=== PATIENT | male | born 1995 | race Caucasian/White ===

== ENCOUNTER 2016-09-08 11:25 | Emergency (ER) | payer MEDICAID ==
[~2016-09-08] VITALS: Ht 175.3 cm; Wt 113.6 kg
[~2016-09-08 11:25] MED LIST: ABILIFY PO; CLON0.1T14 PO; LIT150 PO; LITH300T PO; MET15 PO
[2016-09-08 11:38] VITALS: BP 151/87; PULSE 64; RESP 12; O2SAT 98
--- NOTE | 2016-09-08 11:59 | ED.REPORT ---
HPI-Chest Pain Under 40 Date of Service Sep 08, 2016 ED Provider: Florecita Johnson MD Patient is a 20 year old male with a history of depression and a mood disorder who presents to the ED via EMS due to sudden onset chest pain at 0800 this morning. Associated symptoms include dizziness and left arm pain. He denies any other symptoms at this time. The patient reports that while he was moving a clothes bin he started having a sharp pain that he describes as his "heart being slowly ripped in half". He then fell down due to the pain and landed on his left forearm, which he attributes his current pain to. Once arrived at the ED, the patient reports his chest pain has resolved. Nursing Notes Stated Complaint: CHEST PAIN Chief Complaint: Chest Pain Nursing Notes Reviewed: Yes Allergies: Coded Allergies: Sulfa (Sulfonamide Antibiotics) (Verified Allergy, Severe, unknown, ) fish oil (Verified Allergy, Unknown, Nausea, 09/08/16) Scheduled Aripiprazole-Expunged Drug, Do Not Renew! (Aripiprazole-Expunged Drug, Do Not Renew!) 15 Mg Tablet 15 MG PO BID Clonidine-Expunged Drug, Do Not Renew! (Clonidine-Expunged Drug, Do Not Renew!) 0.1 Mg Tablet 0.1 MG PO QID 1/2 tablet @ 0630,1000, 1300 & 1600 Clonidine-Expunged Drug, Do Not Renew! (Clonidine-Expunged Drug, Do Not Renew!) 0.1 Mg Tablet 0.1 MG PO HS 1 1/2 tablet @ HS [place] Carb-Expunged Drug, Do Not Renew! (Lithobid-Expunged Drug, Do Not Renew! ) 150 Mg Capsule 150 MG PO HS [place] Carbonate-Expunged Drug, Do Not Renew ([place] Carbonate-Expunged Drug, Do Not Renew) 300 Mg Tablet.sa 300 MG PO BID Psyllium-Expunged Drug, Choose New Med! (Metamucil Packet-Expunged Drug, Choose New) 1 Ea Pack 17 GM PO AM General Time Seen by MD: 11:58 Chief Complaint Chest pain Hx Obtained From: Patient Arrived By: Ambulance Sudden in Onset?: Yes Onset Occurred: 1 - 4 hours ago Location: : Substernal Quality: Painful, Sharp, Tearing Severity: Current: No pain currently Severity: Maximum: Moderate Associated with: Reports: Dizziness Recent Healthcare: No recent hospitalization Similar Sx Previous: No Past Medical History Past Medical History depression mood disorder anxiety Family History heart disease Smoking History Never Smoker Ambulatory Status Independent Review of Systems Constitutional: Denies: Chills, Fever Respiratory: Denies: Non-productive cough, Shortness of breath Cardiovascular: Reports: Chest pain GI: Denies: Vomiting Musculoskeletal: Reports: Extremity pain (left arm) Skin: Denies Itching, Denies Rash Neurologic: Reports: Dizziness, Denies: Numbness, Weakness Complete sys rev & neg: except as marked. Physical Exam Initial Vital Signs Vital Signs (First) Date Time Temp Pulse Resp B/P Pulse Ox O2 Delivery O2 Flow Rate FiO2 09/08/16 11:38 37.0 64 12 151/87 98 Room Air Initial VS: Reviewed General/Constitutional: Awake, Alert, No acute distress Respiratory / Chest: Atraumatic, Breath sounds NL, Breath sounds = bilat, No respiratory distress Cardiovascular: Heart rate NL, Regular rhythm, Heart sounds NL Neck: Atraumatic, Supple Abdomen: Atraumatic, Soft, Non-tender Lower Extremity / Pelvis / MS: Atraumatic, Full range of motion Skin: Atraumatic, Color NL, No rash, Warm, Dry Neurologic: Oriented X3, Speech NL, No motor deficits, No sensory deficits Head / Eyes: Atraumatic, Normocephalic, PERRL, EOMI Upper Extremity / MS: Atraumatic, Full range of motion Interpretation & Diagnostics X-Ray Chest Interpretation Chest Xray Interpretation: IMPRESSION: No acute disease Dictated by: Heladio Bradley M.D. on 09/08/2016 at 12:40 Approved by: Heladio Bradley M.D. on 09/08/2016 at 12:40 Interpretation / Wet Read by: Interpret - Radiologist Re-Eval/Medical Decision Re-Evaluation/Progress #1: Time of Eval: 12:14 Re-Evaluation/Progress Note: Discussed plan for X-ray Re-Evaluation/Progress #2: Time of Eval: 12:41 Re-Evaluation/Progress Note: Discussed X-ray results and plan for discharge. Patient understands and agrees to the plan. All questions were addressed Counseled Regarding: Diagnosis, Lab results, Need for follow-up, When/why to return to ED Discharge & Departure Primary Impression: Non-cardiac chest pain Disposition: Home Discharge Condition All VS Reviewed: Yes Condition: Stable Patient Instructions: Musculoskeletal Pain (ED) Additional Instructions: Your X-ray and labs were normal and reassuring. you will not need surgery. There is no evidence of broken bones, collapsed lungs, or heart problems. I suspect you simply pulled something while you were rearranging the bin in your closet. And that you will feel better from here on out. Referrals: Richard Morales MD (PCP) Scribe Attestation Portions of this note were transcribed by Tasia Gardner. I, Dr. Johnson personally performed the history, physical exam and medical decision-making; I reviewed and confirmed the accuracy of the information in the transcribed note. Signed: Sam Manuel, 09/08/2016 copies to: Richard Morales MD Laursen, Shawna L MD Sep 08, 2016 11:59 LEV HOFF Sep 08, 2016 12:05
--- NOTE | 2016-09-08 12:42 | DRSVH ---
PROCEDURE: X-RAY CHEST ONE VIEW, PORTABLE ([id number]) INDICATIONS: chest pain, fall TECHNIQUE: One view of the chest was acquired. COMPARISON: None. FINDINGS: Surgical changes and devices: None. Lungs and pleura: No pleural effusions or pneumothorax. Lungs are clear. Mediastinum: Mediastinal contours appear normal. Heart size is normal. Bones and chest wall: No suspicious bony lesions. Overlying soft tissues appear unremarkable. IMPRESSION: No acute disease Dictated by: Heladio Bradley M.D. on 09/08/2016 at 12:40 Approved by: Heladio Bradley M.D. on 09/08/2016 at 12:40
[2016-09-08 12:47] VITALS: BP 139/78; PULSE 67; RESP 20; O2SAT 98
== END 2016-09-08 12:49 | disposition home or self-care (01) ==
LOC: EDBD 11:25 → SED 11:25 → EDUNIT# 11:25 → SED 12:49
DX: R07.89 Other chest pain (principal); Z88.2 Allergy status to sulfonamides